=== PATIENT | female | born 1990 | race Caucasian/White ===

== ENCOUNTER 2017-03-06 23:40 | Emergency (ER) | payer OTHER ==
[~2017-03-06] VITALS: Ht 185.4 cm; Wt 163.3 kg
[~2017-03-06 23:40] MED LIST: BIRTHCONTROL PATCH; LISINOPRIL10 MG; PROZAC20 MG; SUDAFED 12-HOU120 MG PO
[2017-03-07] MEDS ORDERED: DAYSEE 0.15-0.1 EACH PO (00:03)
[2017-03-07] MEDS ORDERED: LISINOPRIL-HCT1 EAC2 PO (00:04)
[2017-03-07] MEDS ORDERED: SPIRONOLACTONE50 MG PO (00:04)
== END 2017-03-07 03:28 | disposition home or self-care (01) ==
LOC: ED 23:40
DX: N83.201 Unspecified ovarian cyst, right side (principal); I10 Essential (primary) hypertension; Z87.891 Personal history of nicotine dependence; Z79.899 Other long term (current) drug therapy
CPT/HCPCS: 74177; 76830; 76856; 80053; 81001; 83690; 84703; 85025; 96374; 96375; 99284; J1170; J2405; Q9967